=== PATIENT | male | born 2005 | race Caucasian/White ===

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

== ENCOUNTER 2023-12-28 16:14 | Emergency (ER) | payer BC | END 2023-12-28 17:40 | disposition home or self-care (01) | LOC: JP.ED 16:14 | DX: R13.10 Dysphagia, unspecified (principal); Z86.16 Personal history of COVID-19 | CPT/HCPCS: 71046; 71046-26; 99284 ==

== ENCOUNTER 2024-01-02 09:29 | Day surgery (SDC) | payer BC ==
[~2024-01-02 09:29] MED LIST: Midazolam 1 MG/ML 2 ML SDV ONE; Propofol 200 MG/20 ML SDV ONE; fentaNYL 50 MCG/ML SDV ONE
[2024-01-02] MEDS: Lactated Ringers 1,000 ML IV SCH (10:23)
== END 2024-01-02 13:26 | disposition home or self-care (01) ==
LOC: JP.SDS 09:29
PROVIDERS: ATTEND Student in an Organized Health Care Education/Training Program
DX: R13.10 Dysphagia, unspecified (principal); K29.70 Gastritis, unspecified, without bleeding; R09.89 Other specified symptoms and signs involving the circulatory and respiratory systems; R10.9 Unspecified abdominal pain
CPT/HCPCS: 43239; 88305; J2250; J2704; J3010; J7120

== ENCOUNTER 2025-03-22 09:40 | Day surgery (SDC) | payer BC ==
[~2025-03-22 09:40] MED LIST changes: +Lactated Ringers 1,000 ML IV SCH; -Midazolam 1 MG/ML 2 ML SDV ONE; -Propofol 200 MG/20 ML SDV ONE; -fentaNYL 50 MCG/ML SDV ONE
[2025-03-22] MEDS ORDERED: fentaNYL 100 MCG/2 ML SDV ONE (09:51)
[2025-03-22] MEDS ORDERED: Midazolam 1 MG/ML 2 ML SDV ONE (09:51)
[2025-03-22] MEDS ORDERED: Propofol 200 MG/20 ML SDV ONE (09:51)
[2025-03-22] MEDS: Lactated Ringers 1,000 ML IV SCH (10:14)
== END 2025-03-22 12:30 | disposition home or self-care (01) ==
LOC: JP.SDS 09:40
PROVIDERS: ATTEND Surgery
DX: K29.50 Unspecified chronic gastritis without bleeding (principal); K22.89 Other specified disease of esophagus
CPT/HCPCS: 00731; 43239; 88305; J2250; J2704; J3010; J7120